=== PATIENT | female | born 1995 | race Caucasian/White ===

== ENCOUNTER → 2016-11-02 | Outpatient (CLI) | payer OTHER ==
--- NOTE | ~2016-11-02 | MR17 ---
[facility] A Service of [facility] RADIOLOGY TEXT RESULTS PATIENT: SHITAL JAIME LOCATION: [facility] : [birth year] UNIT #: [id number] AGE: [address]: Kem Coronel II, MD SEX: F ORDER DR: [id number] [address] [address] [id number] O MR#: [id number] Acc #: [id number] NAME: SHITAL JAIME : 1995 SEX: F STUDY DATE/TIME: 11/02/2016 9:32 UNIT: [facility] ROOM: STUDY DESCRIPTION: MR Brain WWo Contrast Attending Physician: Kem Coronel II., M.D. Referring Physician: Kem Coronel II., M.D. Ordering Physician: Kem Coronel II., M.D. Primary Care Physician: Walter Pham D.O. [facility]ENTER REPORT This report is preliminary unless electronic signature is present. EXAM MRI brain with and without, 11/02/2016 HISTORY Vitamin B12 deficiency, one episode of near syncope on 09/14/2016. Dizziness, trouble concentrating and numbness in right arm. No known injury. No cancer history. COMMENT MRI of the brain was performed prior to and following intravenous administration of 12 mL of MultiHance. There is an earlier head CT from 09/14/2016. There is no evidence for a recent ischemic insult on the diffusion series. No Chiari-1 malformation. No extra axial fluid collection. The ventricles are normal in size and configuration for age group. The major intracranial flow voids are maintained. Visualized paranasal sinuses and mastoid air cells are clear. Kolb-white junction is age appropriate. No MRI evidence for intracranial hemorrhage. No intracranial mass effect. Following contrast administration, there is no pathologic intracranial enhancement or intracranial mass lesion. IMPRESSION Essentially normal MRI of the brain with and without contrast for age group. Dictated by... Natasha Tarango M.D. [facility] A Service of [facility] RADIOLOGY TEXT RESULTS PATIENT: SHITAL JAIME LOCATION: [facility] : [birth year] UNIT #: [id number] AGE: [address]: Kem Coronel II, MD SEX: F ORDER DR: THIS IS AN ELECTRONICALLY VERIFIED REPORT Natasha Tarango M.D. at 11/03/2016 1:48 PM DAVIN/tino TD: 11/03/2016 03:25 JOB #: [id number] MRI CENTER REPORT
== END | disposition home or self-care (01) ==
LOC: SMRI 09:11
DX: E53.8 Deficiency of other specified B group vitamins (principal)
CPT/HCPCS: 70553; A9581